=== PATIENT | female | born 1965 | race Two or more races ===

== ENCOUNTER → 2023-10-21 | Outpatient (CLI) | payer MEDICAID ==
[2023-10-21 11:36] LABS: Basophils # (auto) 0 10 ^3/uL (0-0.2); Basophils % (auto) 0.7 % (0.0-2.0); Eosinophils # (auto) 0.1 10 ^3/uL (0-0.8); Hemoglobin 14.2 g/dL (12.2-16.2); Monocytes # (auto) 0.4 10 ^3/uL (0-1.3); Neutrophils # (auto) 3.1 10 ^3/uL (1.6-8.6)
[2023-10-21 11:39] LABS: Hematocrit 41.6 % (36.0-46.0); Lymphocytes # (auto) 0.6 10 ^3/uL (0.4-5.4); Lymphocytes % (auto) 15.1 % (10.0-50.0); Mean Corpuscular Hemoglobin 30.4 pg (28.0-32.0); Mean Corpuscular Hgb Conc. 34.2 g/dL (32.0-36.0); Mean Corpuscular Volume 88.9 fL (80.0-100.0); Monocytes % (auto) 8.4 % (0.0-12.0); Neutrophils % (auto) 72.8 % (37.0-80.0); Nucleated Red Blood Cells % 0.2 %; Red Blood Cells 4.68 10^6/uL (4.0-5.20); Red Cell Distribution Width 16.7 % (11.8-14.3); White Blood Cell 4.2 10^3/uL (4.4-10.8)
[2023-10-21 12:00] LABS: Alanine Aminotransferase 35 U/L (7-40); Alkaline Phosphatase 129 U/L (46-116); Anion Gap 7 (5-15); BUN/Creatinine Ratio 33.3 (10.0-20.0); Blood Urea Nitrogen 34 mg/dL (9-23); Carbon Dioxide 27 mmol/L (20-30); Chloride 110 mmol/L (98-107); Glucose 144 mg/dL (74-106); Potassium 4.4 mmol/L (3.5-5.1); Sodium 144 mmol/L (136-145); Triglycerides 94 mg/dL (< 150)
[2023-10-21 12:01] LABS: Albumin 3.7 g/dL (3.2-4.8); Aspartate Aminotransferase 34 U/L (13-40); LDL Cholesterol 76 mg/dL (< 100)
[2023-10-21 12:02] LABS: Bilirubin, Total 3.4 mg/dL (0.2-1.0); Cholesterol 142 mg/dL (< 200); HDL Cholesterol 51 mg/dL (40-59); Total Protein 6.8 g/dL (5.7-8.2)
[2023-10-21 12:39] LABS: Hepatitis B Core Total AB Negative (Negative)
[2023-10-21 13:09] LABS: Hepatitis A Total Antibody Positive (Negative); Hepatitis B Surface Antibody Negative (Negative); Hepatitis B Surface Antigen Negative (Negative); Hepatitis C Antibody Negative (Negative)
[2023-10-21 13:13] LABS: Platelet Estimate Decreased
[2023-10-22 08:06] LABS: AFP Serum Tumor Marker 3.4 ng/mL (0.0-9.2); HSV 2 IgG Antibody <0.91 index (0.00-0.90)
[2023-10-22 10:06] LABS: RPR Non Reactive (Non Reactive)
== END | disposition home or self-care (01) ==
LOC: LAB 10:15
PROVIDERS: ATTEND Student in an Organized Health Care Education/Training Program
DX: I10 Essential (primary) hypertension (principal); E11.9 Type 2 diabetes mellitus without complications; R74.8 Abnormal levels of other serum enzymes; K76.89 Other specified diseases of liver
CPT/HCPCS: 36415; 80053; 80061; 82105; 83036; 85025; 86592; 86695; 86696; 86703; 86704; 86706; 86708; 86803; 87340

== ENCOUNTER → 2023-11-04 | Outpatient (CLI) | payer MEDICAID | END | disposition home or self-care (01) | LOC: XYW 12:46 | PROVIDERS: ATTEND Internal Medicine | DX: Z01.810 Encounter for preprocedural cardiovascular examination (principal); R09.89 Other specified symptoms and signs involving the circulatory and respiratory systems; I08.0 Rheumatic disorders of both mitral and aortic valves | CPT/HCPCS: 93306 ==

== ENCOUNTER → 2023-11-05 | Outpatient (CLI) | payer MEDICAID | END | disposition home or self-care (01) | LOC: XYW 08:27 | PROVIDERS: ATTEND Internal Medicine | DX: Z01.810 Encounter for preprocedural cardiovascular examination (principal); R09.89 Other specified symptoms and signs involving the circulatory and respiratory systems | CPT/HCPCS: 93886 ==

== ENCOUNTER → 2023-11-07 | Outpatient (CLI) | payer MEDICAID ==
[~2023-11-07] VITALS: Ht 162.6 cm; Wt 97.5 kg
[~2023-11-07] MED LIST: ADENOSINE 82 MG in GIVE UN-DILUTED 0 ML IV ONE
== END | disposition home or self-care (01) ==
LOC: XYW 12:05
PROVIDERS: ATTEND Internal Medicine
DX: Z01.810 Encounter for preprocedural cardiovascular examination (principal); S46.009D Unspecified injury of muscle(s) and tendon(s) of the rotator cuff of unspecified shoulder, subsequent encounter; I10 Essential (primary) hypertension; E11.65 Type 2 diabetes mellitus with hyperglycemia; R09.89 Other specified symptoms and signs involving the circulatory and respiratory systems; E78.5 Hyperlipidemia, unspecified; E66.01 Morbid (severe) obesity due to excess calories; Z68.38 Body mass index [BMI] 38.0-38.9, adult; X58.XXXD Exposure to other specified factors, subsequent encounter
CPT/HCPCS: 78452; 93017; A9500; J0153

== ENCOUNTER 2024-06-23 08:53 | Day surgery (SDC) | payer MEDICAID ==
[2024-06-19 12:45] LABS: Basophils # (auto) 0 10 ^3/uL (0-0.2); Basophils % (auto) 0.8 % (0.0-2.0); Eosinophils # (auto) 0.2 10 ^3/uL (0-0.8); Lymphocytes # (auto) 0.9 10 ^3/uL (0.4-5.4); Monocytes # (auto) 0.5 10 ^3/uL (0-1.3); Neutrophils # (auto) 3.8 10 ^3/uL (1.6-8.6)
[2024-06-19 12:48] LABS: Urine Bacteria FEW /hpf (None Seen); Urine Blood Negative /uL (Negative); Urine Clarity Turbid (Clear); Urine Color Light-Orange (Yellow); Urine Protein, UAD TRACE (Negative); Urine Specific Gravity 1.019 (1.001-1.035); Urine Urobilinogen 2 mg/dL (Negative); Urine WBC 43 /hpf (0 - 5)
[2024-06-19 12:51] LABS: Eosinophils % (auto) 3.1 % (0.0-7.0); Hematocrit 39.7 % (36.0-46.0); Hemoglobin 14.1 g/dL (12.2-16.2); Lymphocytes % (auto) 16.2 % (10.0-50.0); Mean Corpuscular Hgb Conc. 35.5 g/dL (32.0-36.0); Monocytes % (auto) 8.6 % (0.0-12.0); Neutrophils % (auto) 71.3 % (37.0-80.0); Nucleated Red Blood Cells % 0.1 %; Platelet Count (auto) 61 10^3/uL (140-450); Red Blood Cells 4.41 10^6/uL (4.0-5.20); Red Cell Distribution Width 16.6 % (11.8-14.3); White Blood Cell 5.3 10^3/uL (4.4-10.8)
[2024-06-19 13:12] LABS: INR 1.18 (0.9-1.15); Partial Thromboplastin Time 27.9 SEC (24.5-34.5); Prothrombin Time 12.4 sec (9.3-11.8)
[2024-06-19 13:25] LABS: Alanine Aminotransferase 29 U/L (7-40); Albumin 3.6 g/dL (3.2-4.8); Alkaline Phosphatase 102 U/L (46-116); Anion Gap 9 (5-15); Aspartate Aminotransferase 29 U/L (13-40); BUN/Creatinine Ratio 22.2 (10.0-20.0); Bilirubin, Total 3.6 mg/dL (0.2-1.0); Blood Urea Nitrogen 14 mg/dL (9-23); Carbon Dioxide 24 mmol/L (20-30); Chloride 110 mmol/L (98-107); Glucose 121 mg/dL (74-106); Potassium 3.9 mmol/L (3.5-5.1); Sodium 143 mmol/L (136-145); Total Protein 7.1 g/dL (5.7-8.2)
[2024-06-19 14:21] LABS: Platelet Estimate Decreased
[~2024-06-23] VITALS: Ht 162.6 cm; Wt 99.8 kg
[~2024-06-23 08:53] MED LIST changes: -ADENOSINE 82 MG in GIVE UN-DILUTED 0 ML IV ONE; +DULA1INJ SC; +LOSA-535 PO; +METF-370 PO
[2024-06-23] MEDS ORDERED: ROCURONIUM 10MG/ML 10ML VIAL IV ONE (08:54)
[2024-06-23] MEDS: ceFAZolin 2 GM/D5W50ml 50 ML IV ONE (10:32)
[2024-06-23] MEDS ORDERED: SUCCINYLCHOLINE CHLORIDE 20 MG/ML 10ML VIAL IV ONE (10:34)
[2024-06-23] MEDS: EPINEPHrine HCL 1 MG/1 ML AMP ONE (10:34)
[2024-06-23] MEDS ORDERED: MIDAZOLAM HCL 2MG/2ML 2ml VIAL (1mg/ml) ONE (10:38)
[2024-06-23] MEDS ORDERED: fentaNYL CITRATE 100 MCG/2 ML VL ONE (10:38)
[2024-06-23] MEDS ORDERED: MEPERIDINE HCL (25 MG/ML) 1ML VIAL ONE (10:39)
[2024-06-23] MEDS ORDERED: PROPOFOL 10 MG/ML 20 ML IV ONE (10:54)
[2024-06-23] MEDS ORDERED: DexAMETHasone SOD PHOS 10MG/1ML VIAL INJ ONE (10:54)
[2024-06-23] MEDS ORDERED: ONDANSETRON HCL 4 MG/2 ML VIAL IV ONE (11:00)
[2024-06-23] MEDS ORDERED: ePHEDrine SULFATE 50 MG/ML AMP IV PRN (11:00)
[2024-06-23] MEDS ORDERED: HYDROmorphone HCL 2 MG/ML VL/or syr IV PRN (11:00)
[2024-06-23] MEDS ORDERED: MIDAZOLAM HCL 2MG/2ML 2ml VIAL (1mg/ml) IV PRN (11:00)
[2024-06-23] MEDS ORDERED: hydrALAZINE HCL 20 MG/ML VL IV PRN (11:00)
[2024-06-23] MEDS ORDERED: MORPHINE SULFATE 4 MG/ML SYR/VIAL IV PRN (11:00)
[2024-06-23 13:10] VITALS: TEMP 97; O2SAT 100
[2024-06-23] MEDS ORDERED: HYDR1TAB97 PO (13:18)
[2024-06-23] MEDS ORDERED: ASPI-498 OR (13:19)
[2024-06-23] MEDS ORDERED: CEPH500C PO (13:19)
[2024-06-23 14:50] VITALS: BP 160/71; PULSE 99; RESP 18; O2SAT 93
== END 2024-06-23 15:10 | disposition home or self-care (01) ==
LOC: SUR 08:53
PROVIDERS: ATTEND Orthopaedic Surgery Sports Medicine
DX: M75.122 Complete rotator cuff tear or rupture of left shoulder, not specified as traumatic (principal); G89.29 Other chronic pain; M94.262 Chondromalacia, left knee; M65.862 Other synovitis and tenosynovitis, left lower leg; M71.562 Other bursitis, not elsewhere classified, left knee; I10 Essential (primary) hypertension; E11.9 Type 2 diabetes mellitus without complications; E66.01 Morbid (severe) obesity due to excess calories; Z68.37 Body mass index [BMI] 37.0-37.9, adult; Z79.84 Long term (current) use of oral hypoglycemic drugs; Z79.899 Other long term (current) drug therapy; Z90.49 Acquired absence of other specified parts of digestive tract; Z86.2 Personal history of diseases of the blood and blood-forming organs and certain disorders involving the immune mechanism; Z98.890 Other specified postprocedural states; Z88.1 Allergy status to other antibiotic agents
CPT/HCPCS: 29826; 29827; 36415; 80053; 81001; 82962; 85025; 85610; 85730; C1713; J0171; J0330; J0690; J1100; J2175; J2250; J2371; J2405; J2704; J3010; A4565

== ENCOUNTER → 2025-02-24 | Day surgery (SDC) | payer MEDICAID ==
[~2025-02-24] VITALS: Ht 162.6 cm; Wt 99.8 kg
[~2025-02-24] MED LIST changes: +ACETAMINOPHEN IV 100 ML IV ONE; +ATOR20TA PO; +CELECOXIB 100 MG CAP ONE; -DULA1INJ SC; +EPINEPHrine HCL 1 MG/1 ML AMP ONE; +GABAPENTIN 300 MG CAP ONE; +KETOROLAC TROMETH 30 MG/ML 1ML VIAL ONE; +METF-1201 PO; -METF-370 PO; +MORPHINE SULF PF 5 MG/10 ML VIAL ONE; +ROPIVACAINE 0.5% (5MG/ML) 20ML AMPULE IJ ONE; +TRANEXAMIC ACID 0 ML ONE; +VANCOMYCIN HCL 1000 MG VL ONE; +ceFAZolin 2 GM/D5W50ml 50 ML IV ONE
[2025-02-24 06:12] VITALS: BP 145/61; PULSE 85; RESP 20; TEMP 98; O2SAT 97
[2025-02-24] MEDS: GABAPENTIN 300 MG CAP PO ONE (07:00)
[2025-02-24] MEDS: ACETAMINOPHEN IV 1000 MG/100ML (10MG/ML) IV ONE (07:00)
[2025-02-24] MEDS: CELECOXIB 100 MG CAP PO ONE (07:00)
== END | disposition home or self-care (01) ==
LOC: SUR 06:06
PROVIDERS: ATTEND Orthopaedic Surgery
DX: M17.11 Unilateral primary osteoarthritis, right knee (principal); Z53.8 Procedure and treatment not carried out for other reasons; I10 Essential (primary) hypertension; E11.9 Type 2 diabetes mellitus without complications; E78.5 Hyperlipidemia, unspecified; Z79.84 Long term (current) use of oral hypoglycemic drugs; Z79.01 Long term (current) use of anticoagulants; Z79.899 Other long term (current) drug therapy; Z90.49 Acquired absence of other specified parts of digestive tract; Z98.890 Other specified postprocedural states; Z88.1 Allergy status to other antibiotic agents
CPT/HCPCS: 82962; 86850; 86900; 86901; J0690; J2270; J0131; J0171; J1885